=== PATIENT | female | born 1975 | race Caucasian/White ===

== ENCOUNTER 2017-06-28 08:25 | Day surgery (SDC) | payer OTHER ==
[~2017-06-28] VITALS: Ht 154.9 cm; Wt 71.8 kg
[~2017-06-28 08:25] MED LIST: CYCL10 PO; HYDACE5325 PO; LEVSOD125; NAPR500 PO
[2017-06-28] MEDS ORDERED: LEVSOD125 PO (08:56)
== END 2017-06-28 10:09 | disposition home or self-care (01) ==
LOC: ORSCSDS 08:25
PROVIDERS: Orthopaedic Surgery
PROC: 01N50ZZ Release Median Nerve, Open Approach (ICD-10-PCS; principal; 2017-06-28 09:45)
DX: G56.01 Carpal tunnel syndrome, right upper limb (principal); E03.9 Hypothyroidism, unspecified; Z87.891 Personal history of nicotine dependence; Z79.899 Other long term (current) drug therapy
CPT/HCPCS: J2250; J3010

== ENCOUNTER → 2018-04-14 | Outpatient (CLI) | payer OTHER ==
[~2018-04-14] MED LIST changes: +LEVSOD125 PO
== END ==
LOC: LAB SHORT 18:50 → LAB 18:50
PROVIDERS: Nurse Practitioner Family
DX: Z00.00 Encounter for general adult medical examination without abnormal findings (principal)
CPT/HCPCS: G0145

== ENCOUNTER 2021-03-16 06:47 | Day surgery (SDC) | payer OTHER ==
[~2021-03-16] VITALS: Ht 154.9 cm; Wt 70.0 kg
== END 2021-03-16 09:38 | disposition home or self-care (01) ==
LOC: ORSCSDS 06:47
PROVIDERS: Student in an Organized Health Care Education/Training Program
PROC: 0DB78ZX Excision of Stomach, Pylorus, Via Natural or Artificial Opening Endoscopic, Diagnostic (ICD-10-PCS; principal; 2021-03-16 08:00)
PROC: 0DBN8ZX Excision of Sigmoid Colon, Via Natural or Artificial Opening Endoscopic, Diagnostic (ICD-10-PCS; principal; 2021-03-16 08:00)
PROC: 0DB48ZX Excision of Esophagogastric Junction, Via Natural or Artificial Opening Endoscopic, Diagnostic (ICD-10-PCS; principal; 2021-03-16 08:00)
PROC: 0DBK8ZX Excision of Ascending Colon, Via Natural or Artificial Opening Endoscopic, Diagnostic (ICD-10-PCS; principal; 2021-03-16 08:00)
PROC: 0DB58ZX Excision of Esophagus, Via Natural or Artificial Opening Endoscopic, Diagnostic (ICD-10-PCS; principal; 2021-03-16 08:00)
DX: K21.9 Gastro-esophageal reflux disease without esophagitis (principal); Z12.11 Encounter for screening for malignant neoplasm of colon; K29.70 Gastritis, unspecified, without bleeding; B96.81 Helicobacter pylori [H. pylori] as the cause of diseases classified elsewhere; D12.5 Benign neoplasm of sigmoid colon; D12.2 Benign neoplasm of ascending colon; Z87.891 Personal history of nicotine dependence; K76.0 Fatty (change of) liver, not elsewhere classified; E03.9 Hypothyroidism, unspecified; Z79.899 Other long term (current) drug therapy
CPT/HCPCS: 88305; 88342; J2704; J7120

== ENCOUNTER → 2022-02-16 | Outpatient (CLI) | payer OTHER ==
[2022-02-23 13:10] LABS: HPV 16 Negative (Negative); HPV 18 Negative (Negative); HPV OTHER HR TYPES Negative (Negative)
== END ==
LOC: RAD SHORT 14:03 → LAB 14:03
PROVIDERS: Nurse Practitioner Family
DX: Z01.419 Encounter for gynecological examination (general) (routine) without abnormal findings (principal)
CPT/HCPCS: 87624; G0145

== ENCOUNTER 2022-12-09 09:34 | Emergency (ER) | payer OTHER ==
[~2022-12-09] VITALS: Ht 154.9 cm; Wt 66.2 kg
[2022-12-09] MEDS ORDERED: EUTHYROX88 MC1 PO (09:57)
[2022-12-09] MEDS ORDERED: METOPROLOL SUCC25 MG PO (10:00)
[2022-12-09 10:23] LABS: BASOPHILS ABSOLUTE AUTO 0.05 K/mm3 (0.00-0.23); BASOPHILS PERCENT AUTO 1 % (0-2); EOSINOPHILS ABSOLUTE AUTO 0.04 K/mm3 (0.00-0.68); EOSINOPHILS PERCENT AUTO 1 % (0-6); Hematocrit 37.2 % (33.0-51.0); Hemoglobin 13.4 g/dL (11.5-16.0); IMMATURE GRAN ABSOLUTE AUTO 0.02 K/mm3 (0.00-0.10); IMMATURE GRAN PERCENT AUTO 1 % (0-1); LYMPHOCYTES PERCENT AUTO 54 % (21-46); MONOCYTES ABSOLUTE AUTO 0.47 K/mm3 (0.16-1.47); MONOCYTES PERCENT AUTO 13 % (4-13); Mean Corpuscular HGB 31.8 pg (26.0-34.0); Mean Corpuscular Volume 88 fL (80-100); Mean Platelet Volume 9.5 fL (9.1-12.4); NEUTROPHILS ABSOLUTE AUTO 1.11 K/mm3 (1.96-9.15); NEUTROPHILS PERCENT AUTO 30 % (41-73); Platelet Count 208 K/mm3 (150-400); RDW Coefficient Variation 12.9 % (11.7-14.2); RDW Standard Deviation 40.5 fL (35.1-46.3); Red Blood Cell Count 4.21 M/mm3 (3.80-5.20); White Blood Cell Count 3.69 K/mm3 (4.00-11.30)
[2022-12-09 10:32] LABS: Albumin, Blood 3.9 g/dL (3.4-5.0); Albumin/Globulin Ratio 1.1 (0.8-1.8); Bilirubin, Total 0.4 mg/dL (0.1-1.0); Bun/Creatinine Ratio 15.4 (12.0-20.0); Calcium, Blood 9.8 mg/dL (8.5-10.1); Creatinine, Blood 0.59 mg/dL (0.40-1.00); Globulin, Blood 3.7 g/dL (2.2-4.0); Potassium, Blood 3.6 mmol/L (3.5-5.5); Total Protein, Blood 7.6 g/dL (6.4-8.2)
[2022-12-09 12:45] VITALS: BP 157/96
== END 2022-12-09 13:06 | disposition home or self-care (01) ==
LOC: ER 09:34
PROVIDERS: Physician Assistant
DX: R07.9 Chest pain, unspecified (principal); Z88.0 Allergy status to penicillin; Z79.899 Other long term (current) drug therapy; Z87.891 Personal history of nicotine dependence
CPT/HCPCS: 71046; 80053; 84484; 85025; 85379; 93005; 93010; 96374; 99285-25; J2270

== ENCOUNTER 2023-10-07 09:43 | Day surgery (SDC) | payer OTHER ==
[~2023-10-07] VITALS: Ht 154.9 cm; Wt 72.6 kg
[~2023-10-07 09:43] MED LIST changes: +Cyclobenzaprine5 MG PO; +EUTHYROX88 MC1 PO; +METOPROLOL SUCC25 MG PO; +VENL37.5 PO
[2023-10-07] MEDS ORDERED: Lactated Ringer's 1,000 ML IV SCH (11:15)
[2023-10-07 11:20] VITALS: BP 130/80
--- NOTE | 2023-10-07 11:39 | NUR ---
History, Chart, Medications and Allergies reviewed before start of procedure. Patient reports completing Chlorhexadine shower X2 prior to admission to hospital. Patient confirms NPO status and agrees with scheduled surgery. Lungs clear T/O to Auscultation. Pre-Op teaching done. Pt verbalizes understanding.
[2023-10-07] MEDS ORDERED: CeFAZolin Sodium 2,000 MG in NS 100 ML IV SCH (11:45)
[2023-10-07] MEDS ORDERED: FentaNYL Citrate 50 MCG/ML 2 ML Injection ONE (11:56)
[2023-10-07] MEDS ORDERED: Midazolam HCl 1MG / ML 2ML Vial ONE (11:56)
--- NOTE | 2023-10-07 12:16 | NUR ---
10/07/23 1216 Jacqueline Combs SEE ANEST RECORD FOR BLOCK ON OPERATIVE ARM COMPLETED PRIOR TO SURGERY STARTING.
[2023-10-07 12:38] VITALS: BP 131/91
[2023-10-07 12:40] VITALS: BP 140/88
[2023-10-07 12:45] VITALS: BP 134/88
[2023-10-07 12:50] VITALS: BP 136/81
[2023-10-07 13:01] VITALS: BP 140/91
--- NOTE | 2023-10-07 13:40 | NUR ---
PT DENIES ANY PAIN OR NAUSEA. PT TOLERATING WATER WELL. SPOUSE AT BEDSIDE. DRESSING REMAINS DRY AND INTACT. FINGERS ARE PINK WITH GOOD CAPILLARY REFIL. Discharge instructions reviewed with patient. Patient verbalizes understanding. Copy given to patient to take home. BELONGINGS RETURNED TO PT. Discharged via wheelchair to private car for ride home WITH SPOUSE ELIJAH.
== END 2023-10-07 13:43 | disposition home or self-care (01) ==
LOC: ORSCMMR 09:43 → ORSCSDS 11:00 → ORSCMMR 11:00 → ORSCSDS 11:30 → ORSCMMR 13:43
PROVIDERS: Orthopaedic Surgery
PROC: 01N50ZZ Release Median Nerve, Open Approach (ICD-10-PCS; principal; 2023-10-07 11:00)
DX: G56.02 Carpal tunnel syndrome, left upper limb (principal); E03.9 Hypothyroidism, unspecified; I10 Essential (primary) hypertension; G47.33 Obstructive sleep apnea (adult) (pediatric); K21.9 Gastro-esophageal reflux disease without esophagitis; Z79.899 Other long term (current) drug therapy; Z87.891 Personal history of nicotine dependence
CPT/HCPCS: J0690; J2250; J3010; J7120

== ENCOUNTER 2024-11-05 07:48 | Day surgery (SDC) | payer OTHER ==
[~2024-11-05] VITALS: Ht 154.9 cm; Wt 66.3 kg
[2024-11-05] MEDS ORDERED: Adipex-P37.5 M1 PO (08:37)
[2024-11-05] MEDS ORDERED: NS 500 ML IV ONE (08:45)
[2024-11-05] MEDS ORDERED: CeFAZolin Sodium 2,000 MG VIAL ONE (08:50)
--- NOTE | 2024-11-05 09:02 | NUR ---
11/05/24 0902 Tayla Haider TIME OUT PERFORMED AT BEDSIDE WITH DR BENITEZ AT 0901 IMMEDIATELY PRIOR TO INJECTION OF 7ML OF SOLUTION CONSISTING OF 9ML 1% LIDOCAINE WITH EPI [id number] AND 1ML 8.4% SODIUM BICARBONATE. PT TOLERATED PROCEDURE WITHOUT ANY DIFFICULTIES.
[2024-11-05] MEDS ORDERED: Lidocaine HCl 2% 10 ML SDA ONE (09:06)
[2024-11-05] MEDS ORDERED: Midazolam HCl 1MG / ML 2ML Vial ONE (09:06)
[2024-11-05] MEDS ORDERED: FentaNYL Citrate 50 MCG/ML 2 ML Injection ONE (09:22)
[2024-11-05 10:17] VITALS: BP 134/80
== END 2024-11-05 10:14 | disposition home or self-care (01) ==
LOC: ORSCSDS 07:48
PROVIDERS: Orthopaedic Surgery
PROC: 0JNK0ZZ Release Left Hand Subcutaneous Tissue and Fascia, Open Approach (ICD-10-PCS; principal; 2024-11-05 09:15)
PROC: 0JBH0ZX Excision of Left Lower Arm Subcutaneous Tissue and Fascia, Open Approach, Diagnostic (ICD-10-PCS; principal; 2024-11-05 09:15)
DX: R22.32 Localized swelling, mass and lump, left upper limb (principal); M65.4 Radial styloid tenosynovitis [de Quervain]; E03.9 Hypothyroidism, unspecified; K21.9 Gastro-esophageal reflux disease without esophagitis; I10 Essential (primary) hypertension; G47.33 Obstructive sleep apnea (adult) (pediatric); Z79.899 Other long term (current) drug therapy
CPT/HCPCS: 88304; J0690; J2003; J2250; J3010

== ENCOUNTER 2024-12-27 10:23 | Day surgery (SDC) | payer OTHER ==
[~2024-12-27] VITALS: Ht 154.9 cm; Wt 66.9 kg
[~2024-12-27 10:23] MED LIST changes: +Adipex-P37.5 M1 PO
[2024-12-27 12:45] VITALS: BP 105/86
== END 2024-12-27 12:34 | disposition home or self-care (01) ==
LOC: ORSCSDS 10:23
PROVIDERS: Internal Medicine Gastroenterology
PROC: 0DBN8ZX Excision of Sigmoid Colon, Via Natural or Artificial Opening Endoscopic, Diagnostic (ICD-10-PCS; principal; 2024-12-27 11:45)
DX: Z12.11 Encounter for screening for malignant neoplasm of colon (principal); K63.5 Polyp of colon; Z80.0 Family history of malignant neoplasm of digestive organs; Z86.0101 Personal history of adenomatous and serrated colon polyps; Z85.43 Personal history of malignant neoplasm of ovary; E03.9 Hypothyroidism, unspecified; K21.9 Gastro-esophageal reflux disease without esophagitis; I10 Essential (primary) hypertension; Z79.899 Other long term (current) drug therapy; Z87.891 Personal history of nicotine dependence
CPT/HCPCS: 88305; J2704; J7120